=== PATIENT | female | born 1985 | race Caucasian/White ===

== ENCOUNTER 2018-07-06 12:39 | Emergency (ER) | payer BC, MEDICAID ==
[2018-07-06 12:47] VITALS: TEMP 97.8
[2018-07-06] MEDS ORDERED: Sodium Chloride 0.9% 1,000 ML IV ONE (13:11)
[2018-07-06] MEDS ORDERED: Aluminum Hydroxide/Magnesium Hydroxide Susp (30 mL) PO STA (13:12)
--- NOTE | 2018-07-06 13:26 | C.PDOC ---
History Of Present Illness 32 year old female () who is currently at 12 weeks gestational age presents to the ED complaining of abdominal pain and vomiting for the past several days. Reports she was seen at [facility] a few weeks ago and was diagnosed with gallstones. States she has not followed up with OB because of insurance issues. Denies any fever, chills, shortness of breath, chest pain, vaginal bleeding or any other complaints. Time Seen by Provider: 07/06/18 13:04 Chief Complaint (Nursing): Abdominal Pain History Per: Patient History/Exam Limitations: no limitations Onset/Duration Of Symptoms: Days Current Symptoms Are (Timing): Still Present Location Of Pain/Discomfort: Diffuse Quality Of Discomfort: "Pain" Associated Symptoms: Vomiting. denies: Fever, Chills, Nausea, Diarrhea, Chest Pain, Urinary Symptoms Past Medical History Reviewed: Historical Data, Nursing Documentation, Vital Signs Vital Signs: Last Vital Signs Temp 97.8 F 07/06/18 12:42 Pulse 92 H 07/06/18 12:42 Resp 18 07/06/18 12:42 BP 104/69 07/06/18 12:42 Pulse Ox 96 07/06/18 12:42 Primary Care Provider: Karsten Ceballos - Medical History PMH: No Chronic Diseases Surgical History: No Surg Hx Family History: States: No Known Family Hx - Social History Hx Alcohol Use: No Hx Substance Use: No - Immunization History Hx Tetanus Toxoid Vaccination: No Hx Influenza Vaccination: Yes Hx Pneumococcal Vaccination: No Review Of Systems Except As Marked, All Systems Reviewed And Found Negative. Constitutional: Negative for: Fever, Chills Cardiovascular: Negative for: Chest Pain Respiratory: Negative for: Shortness of Breath Gastrointestinal: Positive for: Vomiting, Abdominal Pain. Negative for: Nausea Genitourinary: Negative for: Dysuria, Hematuria, Vaginal Bleeding Physical Exam - Physical Exam Appears: Non-toxic, No Acute Distress Skin: Warm, Dry, No Rash Head: Normacephalic Eye(s): bilateral: Normal Inspection, PERRL, EOMI Nose: Normal Oral Mucosa: Moist Neck: Supple Cardiovascular: Rhythm Regular Respiratory: Normal Breath Sounds, No Rales, No Rhonchi, No Wheezing Gastrointestinal/Abdominal: Soft, Tenderness (epigastric tenderness), No Distention, No Guarding, No Rebound Neurological/Psych: Oriented x3, Normal Speech Gait: Steady ED Course And Treatment - Laboratory Results Result Diagrams: 07/06/18 13:23 07/06/18 13:23 O2 Sat by Pulse Oximetry: 96 (RA) Pulse Ox Interpretation: Normal - CT Scan/US US gallbladder Other Rad Studies (CT/US): Read By Radiologist, Radiology Report Reviewed CT/US Interpretation: Accession No. : [id number]. Patient Name / ID : MYRA STEPHENSON / [id number]. Exam Date : 07/06/2018 13:45:23 ( Approved ). Study Comment : Sex / Age : F / 32Y. Creator : Norah Steele MD. Dictator : Norah Steele MD. Candy Puller : Photovoltaic Panel Installer : Norah Steele MD. Approver2 : Report Date : 07/06/2018 14:20:28. My Comment : . Date of service: 07/06/2018. HISTORY: upper abd pain h/o of gallstones. COMPARISON: None available. TECHNIQUE: Sonographic evaluation of the right upper quadrant of the abdomen. FINDINGS: LIVER: Measures 11.9 cm in length. Normal echogenicity of the liver parenchyma. No focal hepatic mass identified. The main portal vein appears patent with normal directional flow. No intrahepatic bile duct dilatation. GALLBLADDER: Gallstones. No gallbladder wall thickening or pericholecystic edema. Negative sonographic Raines's sign as assessed by the maintenance job titles. COMMON BILE DUCT: Measures 3 mm. PANCREAS: Not well-visualized. RIGHT KIDNEY: Measures approximately 11.0 x 4.6 x 4.1 cm. No obstructing calculus or hydronephrosis identified. AORTA: Limited visualization appears grossly unremarkable. IVC: Limited visualization appears grossly unremarkable. OTHER FINDINGS: None . IMPRESSION: Cholelithiasis. US transvaginal Other Rad Studies (CT/US): Read By Radiologist, Radiology Report Reviewed CT/US Interpretation: Accession No. : [id number]. Patient Name / ID : MYRA STEPHENSON / [id number]. Exam Date : 07/06/2018 13:51:20 ( Approved ). Study Comment : Sex / Age : F / 32Y. Creator : Norah Steele MD. Dictator : Norah Steele MD. Candy Puller : Photovoltaic Panel Installer : Norah Steele MD. Approver2 : Report Date : 07/06/2018 14:48:18. My Comment : . Date of service: 07/06/2018. Indication: abd pain and preg. Comparison: None available. Technique: Transvaginal pelvic ultrasound. Findings: The uterus measures approximately 8.7 x 6.8 x 3.3 cm. Retroverted. Cervix length measures approximately 2.5 cm. There is an intrauterine gestational sac which measures 2.7 and is compatible with a gestational age of 7 weeks 4 days contains evidence of debris. No evidence of pole. The right ovary measures 3.3 x 2.2 x 4.2 cm and contains 2.0 x 2.3 x 1.7 cm corpus luteum. The left ovary measures 3.3 x 2.0 x 2.6 cm. Blood flow was demonstrated to both ovaries. Impression: There is an intrauterine gestational sac which measures 2.7 and is compatible with a gestational age of 7 weeks 4 days contains evidence of debris. Appearance consistent with demise without evidence of pole. Medical Decision Making Medical Decision Making: suspec tgastritis vs hyperemesis vs biliary colic. Plan - Bloodwork - Maalox 30ml PO - HCG - UA - US gallbladder - US transvaginal - IV fluids us shows miscarriage. case discussed wtih dr silva. suggests metergine x 3 days. adise outpt fu. no vb no pain no lower abd pain. Disposition - Disposition Referrals: [facility] [Outside] [facility] [Outside] Disposition: HOME/ ROUTINE Disposition Time: 16:00 Condition: GOOD Additional Instructions: return to er with worsening. Prescriptions: Methylergonovine [Methergine] 0.2 mg PO TID #9 tab Instructions: Gallstones, Miscarriage (DC) Forms: Fio (Amharic) - Clinical Impression Clinical Impression: Miscarriage, Gallstones, Abdominal pain - Scribe Statement The provider has reviewed the documentation as recorded by the Scribcarmella Tracey All medical record entries made by the Brindaibcarmella were at my direction and p ersonally dictated by me. I have reviewed the chart and agree that the record accurately reflects my personal performance of the history, physical exam, medical decision making, and the department course for this patient. I have also personally directed, reviewed, and agree with the discharge instructions and disposition.
[2018-07-06 13:28] LABS: BASO % 0.7 % (0.0-2.0); EOS # 0.1 K/uL (0.0-0.7); EOS % 1.1 % (0.0-4.0); HEMOGLOBIN 12.8 g/dL (11.0-16.0); LYMPH # 1.8 K/uL (1.0-4.3); LYMPH % 27.5 % (20.0-40.0); MEAN CELL VOLUME 92.7 fL (81.0-99.0); MEAN CORPUSCULAR HEMOGLOBIN 31.8 pg (27.0-31.0); MEAN CORPUSCULAR HGB CONC 34.3 g/dL (33.0-37.0); MEAN PLATELET VOLUME 9.4 fL (7.2-11.7); MONO # 0.5 K/uL (0.0-0.8); MONO % 7.4 % (0.0-10.0); NEUT # 4.1 K/uL (1.8-7.0); NEUT % 63.3 % (50.0-75.0); NRBC % 0.1 % (0.0-2.0); RBC 4.02 Mil/uL (3.80-5.20); RED CELL DISTRIBUTION WIDTH 13.3 % (11.5-14.5); WHITE BLOOD COUNT 6.5 K/uL (4.8-10.8)
[2018-07-06 13:36] LABS: INR 1.2; PARTIAL THROMBOPLASTIN TIME 32.7 SECONDS (21-34); PROTHROMBIN TIME 12.7 SECONDS (9.7-12.2)
[2018-07-06 13:42] LABS: ALB/GLOB RATIO 1.4 (1.0-2.1); ALBUMIN 4.4 g/dL (3.5-5.0); ALT/SGPT 19 U/L (9-52); AST/SGOT 23 U/L (14-36); BILIRUBIN,DIRECT 0.2 mg/dL (0.0-0.4); BLOOD UREA NITROGEN 7 mg/dL (7-17); CALCIUM 9.6 mg/dl (8.6-10.4); GFR NON-AFRICAN AMERICAN > 60; LIPASE 57 U/L (23-300)
[2018-07-06 13:49] LABS: HCG,QUALITATIVE URINE POSITIVE (NEGATIVE)
[2018-07-06] MEDS ORDERED: Aluminum Hydroxide/Magnesium Hydroxide Susp (30 mL) ONE (13:52)
[2018-07-06 13:58] LABS: SQUAMOUS EPITHIAL 1 /hpf (0-5); URINE BACTERIA RARE (<OCC); URINE BILIRUBIN NEGATIVE (NEGATIVE); URINE BLOOD NEGATIVE (NEGATIVE); URINE CLARITY Hazy (Clear); URINE COLOR Amber (YELLOW); URINE GLUCOSE (UA) NORMAL (Normal); URINE LEUKOCYTE ESTERASE NEG Leu/uL (Negative); URINE PROTEIN 1+ mg/dL (NEGATIVE)
--- NOTE | 2018-07-06 14:24 | US ---
Date of service: 07/06/2018 HISTORY: upper abd pain h/o of gallstones COMPARISON: None available TECHNIQUE: Sonographic evaluation of the right upper quadrant of the abdomen. FINDINGS: LIVER: Measures 11.9 cm in length. Normal echogenicity of the liver parenchyma. No focal hepatic mass identified. The main portal vein appears patent with normal directional flow. No intrahepatic bile duct dilatation. GALLBLADDER: Gallstones. No gallbladder wall thickening or pericholecystic edema. Negative sonographic Raines's sign as assessed by the hand roller. COMMON BILE DUCT: Measures 3 mm. PANCREAS: Not well-visualized. RIGHT KIDNEY: Measures approximately 11.0 x 4.6 x 4.1 cm. No obstructing calculus or hydronephrosis identified. AORTA: Limited visualization appears grossly unremarkable. IVC: Limited visualization appears grossly unremarkable. OTHER FINDINGS: None . IMPRESSION: Cholelithiasis.
--- NOTE | 2018-07-06 14:51 | US ---
Date of service: 07/06/2018 Indication: abd pain and preg Comparison: None available Technique: Transvaginal pelvic ultrasound. Findings: The uterus measures approximately 8.7 x 6.8 x 3.3 cm. Retroverted. Cervix length measures approximately 2.5 cm. There is an intrauterine gestational sac which measures 2.7 and is compatible with a gestational age of 7 weeks 4 days contains evidence of debris. No evidence of pole. The right ovary measures 3.3 x 2.2 x 4.2 cm and contains 2.0 x 2.3 x 1.7 cm corpus luteum. The left ovary measures 3.3 x 2.0 x 2.6 cm. Blood flow was demonstrated to both ovaries Impression: There is an intrauterine gestational sac which measures 2.7 and is compatible with a gestational age of 7 weeks 4 days contains evidence of debris. Appearance consistent with demise without evidence of pole.
[2018-07-06 16:03] VITALS: BP 114/70; PULSE 72; RESP 20
[2018-07-06 16:22] VITALS: O2SAT 96
== END 2018-07-06 16:02 | disposition home or self-care (01) ==
LOC: C.ER 12:39
DX: O03.9 Complete or unspecified spontaneous abortion without complication (principal); O99.611 Diseases of the digestive system complicating pregnancy, first trimester; K80.20 Calculus of gallbladder without cholecystitis without obstruction; R10.13 Epigastric pain; Z3A.01 Less than 8 weeks gestation of pregnancy
CPT/HCPCS: 76705; 76817; 80053; 81001; 82248; 83690; 84702; 84703; 85025; 85610; 85730; 86850; 86900; 96360; 99285; J7030